=== PATIENT | male | born 1995 | race African-American/Black ===

== ENCOUNTER 2021-12-01 05:56 | Emergency (ER) | payer MEDICAID ==
[~2021-12-01] VITALS: Ht 182.9 cm; Wt 96.6 kg
[2021-12-01 06:15] VITALS: BP_SYST 156
[2021-12-01] MEDS ORDERED: HYDROcodone/ACETAMIN 7.5-325 MG TAB PO ONE (07:00)
[2021-12-01] MEDS ORDERED: IBUP-1970 PO (08:22)
[2021-12-01] MEDS ORDERED: CYCL10TA24 PO (08:22)
[2021-12-01 09:10] VITALS: BP_SYST 148
== END 2021-12-01 09:10 | disposition home or self-care (01) ==
LOC: SED 05:56
DX: S93.402A Sprain of unspecified ligament of left ankle, initial encounter (principal); S33.5XXA Sprain of ligaments of lumbar spine, initial encounter; Z79.899 Other long term (current) drug therapy; X58.XXXA Exposure to other specified factors, initial encounter; Y93.89 Activity, other specified; Y92.89 Other specified places as the place of occurrence of the external cause; Y99.8 Other external cause status
CPT/HCPCS: 72131; 76376; 99284